=== PATIENT | female | born 1960 | race Caucasian/White ===

== ENCOUNTER 2021-07-22 01:13 | Inpatient (IN) ==
[2021-07-22] MEDS ORDERED: Naloxone 0.4 MG/ML INJ IVP PRN (03:30)
[2021-07-22] MEDS ORDERED: Acetaminophen 325 MG TABLET PO PRN (03:30)
[2021-07-22] MEDS ORDERED: *HR* Dextrose 50 % in Water (Vial) 50 ML VIAL IVP PRN (03:33)
[2021-07-22] MEDS ORDERED: Dextrose Gel 15 GM/37.5 ML TUBE PO PRN ×2 (03:33)
[2021-07-22] MEDS ORDERED: D5% in Water 1,000 ML IVC PRN (03:33)
[2021-07-22] MEDS ORDERED: Ipratropium 1 PUFF INHALER IH PRN (04:00)
[2021-07-22] MEDS: Insulin LISPRO 300 UNITS/3 ML VIAL SUBQ SCH ×4 (04:50→17:24)
[2021-07-22] MEDS: *HR* Heparin 5,000 UNIT/ML VIAL SQ SCH ×3 (04:51→22:21)
[2021-07-22 09:32] LABS: Basophils % 0.5 %; Eosinophils % 0.5 %; Hematocrit 33.5 % (35.3-44.9); Hemoglobin 11.2 g/dL (11.5-15.4); Immature Granulocytes % 0.5 % (0-4); Lymphocytes # 0.8 K/mcL (0.6-4.6); Lymphocytes % 43.4 %; Mean Corpuscular HGB Conc 33.4 g/dL (31.6-35.5); Mean Corpuscular Hemoglobin 30.6 pg (28.0-33.3); Mean Corpuscular Volume 91.5 fL (83.0-100.0); Mean Platelet Volume 10.8 fL (9.4-12.4); Monocytes # 0.3 K/mcL (0.0-1.3); Monocytes % 15.9 %; Neutrophils # 0.7 K/mcL (1.6-8.9); Platelet Count 141 K/mcL (140-400); Red Blood Count 3.66 M/mcL (3.82-4.97); Red Cell Distribution Width 12.8 % (11.5-14.5); Segmented Neutrophils % 39.2 %; White Blood Count 1.9 K/mcL (4.3-11.1)
[2021-07-22 09:48] LABS: INR 1.2; Prothrombin Time 13.3 Seconds (9.4-12.1)
[2021-07-22 09:50] LABS: Activated Partial Thrombo Time 33.4 Seconds (26.0-36.0)
[2021-07-22 09:55] LABS: Albumin 3.5 g/dL (3.5-5.7); Albumin/Globulin Ratio 0.9 (1.1-2.2); Bilirubin,Total 0.7 mg/dL (0.3-1.0); Calcium 8.1 mg/dL (8.6-10.3); Globulin 3.8 g/dL (2.4-3.5); Potassium 3.6 mEq/L (3.5-5.1); Total Protein 7.3 g/dL (6.4-8.9)
[2021-07-22] MEDS: Ondansetron 4 MG/2 ML VIAL IVP PRN (10:11)
[2021-07-22] MEDS: Cyanocobalamin (B-12) 1,000 MCG TABLET PO SCH (10:25)
[2021-07-22] MEDS: amLODIPine 5 MG TABLET PO SCH (10:25)
[2021-07-22] MEDS: Aspirin Enteric Coated 81 MG Tablet PO SCH (10:25)
[2021-07-22] MEDS: Lactobacillus 1 EACH CAP.SPRINK PO SCH ×2 (10:27→22:12)
[2021-07-22] MEDS: Topiramate 100 MG TABLET PO SCH ×2 (10:30→17:21)
[2021-07-22 10:52] LABS: Platelet Estimate Normal (Normal)
[2021-07-22] MEDS ORDERED: levoFLOXacin 500 MG/100 ML 500 MG/100 ML BAG IVPB SCH (11:00)
[2021-07-22] MEDS: cefTRIAXone 1,000 MG in 0.9 % Sodium Chloride Mini Bag 100 ML IVPB SCH (12:00)
[2021-07-22] MEDS: 0.9 % Sodium Chloride 1,000 ML IVC SCH (12:16)
[2021-07-22] MEDS: Doxycycline 100 MG in 0.9 % Sodium Chloride Mini Bag 100 ML IVPB SCH (12:16)
[2021-07-22 13:13] LABS: C-Reactive Protein 37 mg/L (Less than 10); Lactate Dehydrogenase 280 Units/L (140-271)
[2021-07-22 13:26] LABS: Ferritin > 1500 ng/mL (10-120)
[2021-07-22] MEDS: Azithromycin 500 MG in 0.9 % Sodium Chloride 250 ML IVPB SCH (17:23)
[2021-07-22] MEDS: *HR* OxyCODONE/APAP 10/325 TABLET PO PRN (22:12)
[2021-07-22] MEDS: Melatonin 3 MG TABLET PO PRN (22:13)
[2021-07-22] MEDS: Isosorbide MONOnitrate (24 HR) 30 MG TAB.ER.24H PO SCH (22:13)
[2021-07-23] MEDS: Doxycycline 100 MG in 0.9 % Sodium Chloride Mini Bag 100 ML IVPB SCH ×3 (00:29→12:28)
[2021-07-23] MEDS: Insulin LISPRO 300 UNITS/3 ML VIAL SUBQ SCH ×7 (00:32→21:36)
[2021-07-23] MEDS: 0.9 % Sodium Chloride 1,000 ML IVC SCH ×2 (00:44→14:20)
[2021-07-23] MEDS: *HR* Heparin 5,000 UNIT/ML VIAL SQ SCH ×3 (06:28→21:23)
[2021-07-23 07:02] LABS: Hematocrit 31.9 % (35.3-44.9); Hemoglobin 10.6 g/dL (11.5-15.4); Immature Granulocytes % 1.7 % (0-4); Lymphocytes # 0.6 K/mcL (0.6-4.6); Lymphocytes % 32.9 %; Mean Corpuscular HGB Conc 33.2 g/dL (31.6-35.5); Mean Corpuscular Hemoglobin 31.2 pg (28.0-33.3); Mean Corpuscular Volume 93.8 fL (83.0-100.0); Mean Platelet Volume 10.9 fL (9.4-12.4); Monocytes # 0.2 K/mcL (0.0-1.3); Monocytes % 13.9 %; Neutrophils # 0.9 K/mcL (1.6-8.9); Platelet Count 134 K/mcL (140-400); Segmented Neutrophils % 51.5 %; White Blood Count 1.7 K/mcL (4.3-11.1)
[2021-07-23 07:35] LABS: Calcium 7.5 mg/dL (8.6-10.3); Potassium 3.7 mEq/L (3.5-5.1)
[2021-07-23] MEDS: Lactobacillus 1 EACH CAP.SPRINK PO SCH ×2 (10:32→21:22)
[2021-07-23] MEDS: Cyanocobalamin (B-12) 1,000 MCG TABLET PO SCH (10:33)
[2021-07-23] MEDS: amLODIPine 5 MG TABLET PO SCH (10:33)
[2021-07-23] MEDS: Aspirin Enteric Coated 81 MG Tablet PO SCH (10:33)
[2021-07-23] MEDS: Topiramate 100 MG TABLET PO SCH ×2 (10:33→17:25)
[2021-07-23] MEDS: Benzonatate 100 MG CAPSULE PO PRN ×2 (10:38→21:22)
[2021-07-23] MEDS: cefTRIAXone 1,000 MG in 0.9 % Sodium Chloride Mini Bag 100 ML IVPB SCH (12:29)
[2021-07-23] MEDS: Azithromycin 500 MG in 0.9 % Sodium Chloride 250 ML IVPB SCH (17:25)
[2021-07-23] MEDS: *HR* OxyCODONE/APAP 10/325 TABLET PO PRN (21:21)
[2021-07-23] MEDS: Melatonin 3 MG TABLET PO PRN (21:22)
[2021-07-23] MEDS: Isosorbide MONOnitrate (24 HR) 30 MG TAB.ER.24H PO SCH (21:22)
[2021-07-24] MEDS: *HR* Heparin 5,000 UNIT/ML VIAL SQ SCH ×3 (06:11→20:55)
[2021-07-24] MEDS: Ondansetron 4 MG/2 ML VIAL IVP PRN (07:51)
[2021-07-24] MEDS: Insulin LISPRO 300 UNITS/3 ML VIAL SUBQ SCH ×4 (07:52→20:40)
[2021-07-24] MEDS ORDERED: Isovue-370 500 ML BOTTLE IVP ONE (08:43)
[2021-07-24] MEDS: Ipratropium 1 PUFF INHALER IH SCH ×3 (09:18→22:12)
[2021-07-24] MEDS: Lactobacillus 1 EACH CAP.SPRINK PO SCH ×3 (09:29→20:37)
[2021-07-24] MEDS: Aspirin Enteric Coated 81 MG Tablet PO SCH ×2 (09:29→10:29)
[2021-07-24] MEDS: Cyanocobalamin (B-12) 1,000 MCG TABLET PO SCH ×2 (09:29→10:29)
[2021-07-24] MEDS: amLODIPine 5 MG TABLET PO SCH ×2 (09:29→10:29)
[2021-07-24] MEDS: Topiramate 100 MG TABLET PO SCH ×3 (09:40→17:10)
[2021-07-24 10:17] LABS: Hematocrit 29.4 % (35.3-44.9); Hemoglobin 9.9 g/dL (11.5-15.4); Immature Granulocytes % 0.4 % (0-4); Lymphocytes # 0.6 K/mcL (0.6-4.6); Lymphocytes % 11.3 %; Mean Corpuscular HGB Conc 33.7 g/dL (31.6-35.5); Mean Corpuscular Hemoglobin 30.8 pg (28.0-33.3); Mean Corpuscular Volume 91.6 fL (83.0-100.0); Mean Platelet Volume 10.8 fL (9.4-12.4); Monocytes # 0.4 K/mcL (0.0-1.3); Monocytes % 7.9 %; Neutrophils # 4.5 K/mcL (1.6-8.9); Platelet Count 187 K/mcL (140-400); Red Blood Count 3.21 M/mcL (3.82-4.97); Red Cell Distribution Width 12.8 % (11.5-14.5); Segmented Neutrophils % 80.4 %; White Blood Count 5.6 K/mcL (4.3-11.1)
[2021-07-24 10:37] LABS: Calcium 7.7 mg/dL (8.6-10.3); Potassium 3.4 mEq/L (3.5-5.1)
[2021-07-24] MEDS: cefTRIAXone 1,000 MG in 0.9 % Sodium Chloride Mini Bag 100 ML IVPB SCH (12:42)
[2021-07-24] MEDS: Furosemide 20 MG/2 ML VIAL IVP SCH (14:04)
[2021-07-24] MEDS: Azithromycin 500 MG in 0.9 % Sodium Chloride 250 ML IVPB SCH (16:58)
[2021-07-24] MEDS: Isosorbide MONOnitrate (24 HR) 30 MG TAB.ER.24H PO SCH (20:39)
[2021-07-24 21:17] LABS: Ferritin 1310 ng/mL (10-120)
[2021-07-25] MEDS: Benzonatate 100 MG CAPSULE PO PRN (04:16)
[2021-07-25] MEDS: Ipratropium 1 PUFF INHALER IH SCH ×4 (04:26→20:47)
[2021-07-25] MEDS: *HR* Heparin 5,000 UNIT/ML VIAL SQ SCH ×3 (06:02→21:34)
[2021-07-25 08:45] LABS: Hemoglobin 10.4 g/dL (11.5-15.4); Immature Granulocytes % 0.8 % (0-4); Lymphocytes # 1.1 K/mcL (0.6-4.6); Lymphocytes % 15.3 %; Mean Corpuscular HGB Conc 33.5 g/dL (31.6-35.5); Mean Corpuscular Hemoglobin 30.6 pg (28.0-33.3); Mean Corpuscular Volume 91.2 fL (83.0-100.0); Mean Platelet Volume 11.1 fL (9.4-12.4); Monocytes # 0.6 K/mcL (0.0-1.3); Monocytes % 7.5 %; Neutrophils # 5.6 K/mcL (1.6-8.9); Platelet Count 215 K/mcL (140-400); Red Cell Distribution Width 12.9 % (11.5-14.5); Segmented Neutrophils % 76.4 %; White Blood Count 7.3 K/mcL (4.3-11.1)
[2021-07-25 09:01] LABS: Calcium 8.1 mg/dL (8.6-10.3); Potassium 3.6 mEq/L (3.5-5.1)
[2021-07-25] MEDS: Aspirin Enteric Coated 81 MG Tablet PO SCH (10:06)
[2021-07-25] MEDS: Lactobacillus 1 EACH CAP.SPRINK PO SCH ×2 (10:06→21:34)
[2021-07-25] MEDS: Cyanocobalamin (B-12) 1,000 MCG TABLET PO SCH (10:06)
[2021-07-25] MEDS: amLODIPine 5 MG TABLET PO SCH (10:06)
[2021-07-25] MEDS: Furosemide 20 MG/2 ML VIAL IVP SCH ×2 (10:07→16:45)
[2021-07-25] MEDS: Topiramate 100 MG TABLET PO SCH ×2 (10:13→16:44)
[2021-07-25] MEDS: Insulin LISPRO 300 UNITS/3 ML VIAL SUBQ SCH ×4 (10:15→21:35)
[2021-07-25 12:01] LABS: C-Reactive Protein 42 mg/L (Less than 10)
[2021-07-25] MEDS: cefTRIAXone 1,000 MG in 0.9 % Sodium Chloride Mini Bag 100 ML IVPB SCH (12:30)
[2021-07-25 16:25] LABS: Albumin 3.1 g/dL (3.5-5.7); Albumin/Globulin Ratio 0.9 (1.1-2.2); Bilirubin,Direct 0.2 mg/dL (0.0-0.2); Bilirubin,Indirect 0.2 mg/dL (0.0-1.0); Bilirubin,Total 0.4 mg/dL (0.3-1.0); Globulin 3.5 g/dL (2.4-3.5); Total Protein 6.6 g/dL (6.4-8.9)
[2021-07-25] MEDS: Azithromycin 500 MG in 0.9 % Sodium Chloride 250 ML IVPB SCH (16:47)
[2021-07-25] MEDS: Isosorbide MONOnitrate (24 HR) 30 MG TAB.ER.24H PO SCH (21:34)
[2021-07-26] MEDS: Ipratropium 1 PUFF INHALER IH SCH ×5 (03:56→20:18)
[2021-07-26] MEDS: *HR* Heparin 5,000 UNIT/ML VIAL SQ SCH ×3 (06:08→22:10)
[2021-07-26 08:01] LABS: Basophils % 0.2 %; Eosinophils % 0.2 %; Hematocrit 33.2 % (35.3-44.9); Hemoglobin 10.7 g/dL (11.5-15.4); Immature Granulocytes % 1.2 % (0-4); Lymphocytes # 0.9 K/mcL (0.6-4.6); Lymphocytes % 21.7 %; Mean Corpuscular HGB Conc 32.2 g/dL (31.6-35.5); Mean Corpuscular Hemoglobin 30.9 pg (28.0-33.3); Mean Platelet Volume 10.9 fL (9.4-12.4); Monocytes # 0.4 K/mcL (0.0-1.3); Monocytes % 10.4 %; Neutrophils # 2.8 K/mcL (1.6-8.9); Platelet Count 219 K/mcL (140-400); Red Blood Count 3.46 M/mcL (3.82-4.97); Segmented Neutrophils % 66.3 %; White Blood Count 4.2 K/mcL (4.3-11.1)
[2021-07-26 08:14] LABS: Alanine Aminotransferase 19 Units/L (7-52); Albumin 3.2 g/dL (3.5-5.7); Albumin/Globulin Ratio 0.9 (1.1-2.2); Alkaline Phosphatase 59 Units/L (34-104); Aspartate Amino Transferase 16 Units/L (13-39); BUN/Creatinine Ratio 21 (6-26); Bilirubin,Direct 0.1 mg/dL (0.0-0.2); Bilirubin,Indirect 0.4 mg/dL (0.0-1.0); Bilirubin,Total 0.5 mg/dL (0.3-1.0); Blood Urea Nitrogen 23 mg/dL (8-23); Calcium 8.4 mg/dL (8.6-10.3); Carbon Dioxide 23 mEq/L (23-29); Chloride 104 mEq/L (98-107); Globulin 3.7 g/dL (2.4-3.5); Glucose 170 mg/dL (70-105); Osmolality,Calculated 294 (280-300); Potassium 3.4 mEq/L (3.5-5.1); Sodium 138 mEq/L (136-145); Total Protein 6.9 g/dL (6.4-8.9); eGFR For African Americans > 60 (> 60); eGFR For Non-African Americans 50 (> 60)
[2021-07-26] MEDS: Aspirin Enteric Coated 81 MG Tablet PO SCH (08:59)
[2021-07-26] MEDS: Lactobacillus 1 EACH CAP.SPRINK PO SCH ×2 (08:59→22:11)
[2021-07-26] MEDS: amLODIPine 5 MG TABLET PO SCH (08:59)
[2021-07-26] MEDS ORDERED: Furosemide 20 MG/2 ML VIAL IVP SCH (09:00)
[2021-07-26] MEDS: Cyanocobalamin (B-12) 1,000 MCG TABLET PO SCH (09:00)
[2021-07-26 09:03] LABS: Platelet Estimate Normal (Normal)
[2021-07-26] MEDS: Insulin LISPRO 300 UNITS/3 ML VIAL SUBQ SCH ×4 (09:03→22:11)
[2021-07-26] MEDS: Topiramate 100 MG TABLET PO SCH ×2 (09:16→17:25)
[2021-07-26] MEDS ORDERED: *HR* LORazepam 2 MG/ML VIAL IVP ONE (09:42)
[2021-07-26] MEDS ORDERED: *HR* LORazepam 2 MG/ML VIAL ONE (09:44)
[2021-07-26] MEDS: cefTRIAXone 1,000 MG in 0.9 % Sodium Chloride Mini Bag 100 ML IVPB SCH (12:04)
[2021-07-26 19:06] LABS: ABG HCO3 24 mEq/L (21-27); ABG PCO2 39 mmHg (35-45); ABG PH 7.41 pH Units (7.32-7.45); ABG PO2 122 mmHg (85-104)
[2021-07-26 19:14] LABS: ABG Oxygen Saturation 99 % (95-98); Blood Gas Modality AVAPS; Blood Gas VT 500 cc
[2021-07-26] MEDS ORDERED: Doxycycline 100 MG CAPSULE PO SCH (21:00)
[2021-07-26] MEDS: Benzonatate 100 MG CAPSULE PO PRN (22:11)
[2021-07-26] MEDS: Isosorbide MONOnitrate (24 HR) 30 MG TAB.ER.24H PO SCH (22:11)
[2021-07-26 23:46] VITALS: BP 135/60; PULSE 57; TEMP 98.4
[2021-07-27] MEDS: Ipratropium 1 PUFF INHALER IH SCH (00:03)
[2021-07-27 00:08] VITALS: RESP 29; O2SAT 96
== END 2021-07-27 02:05 | DRG 177 ==
LOC: INPPIK
PROVIDERS: ADMIT Internal Medicine; ATTEND Internal Medicine